=== PATIENT | female | born 1960 | race Caucasian/White ===

== ENCOUNTER 2016-10-05 14:10 | Emergency (ER) | payer MEDICARE, MEDICAID ==
[~2016-10-05] VITALS: Ht 165.1 cm; Wt 61.6 kg
[~2016-10-05 14:10] MED LIST: ALPR0.25 PO; DIVA125T2 PO; DULO20CA45 PO; ESOM20CA PO; GABA100C8 PO; TOPI25CA5 PO
[2016-10-05 14:18] VITALS: BP 124/82
[2016-10-05] MEDS ORDERED: LIDOCAINE 1%, 20ML ONE (14:58)
[2016-10-05] MEDS ORDERED: LIDOCAINE 1%, 20ML SQ ONE (15:00)
[2016-10-05] MEDS ORDERED: DIPH,PERTUSS(ACELL),TET VAC/PF 0.5 ML IM-VACC ONE ×2 (15:00→15:05)
== END 2016-10-05 15:35 | disposition home or self-care (01) ==
LOC: ED 15:01
DX: S51.811A Laceration without foreign body of right forearm, initial encounter (principal); W26.0XXA Contact with knife, initial encounter; Y93.89 Activity, other specified; Y92.89 Other specified places as the place of occurrence of the external cause; Y99.8 Other external cause status
CPT/HCPCS: 12001; 90471; 90715

== ENCOUNTER → 2017-07-30 | Outpatient (CLI) | payer MEDICARE, MEDICAID ==
[~2017-07-30] MED LIST changes: +ALPRazolam 1MG TABLET ONE; +GABA-826 PO; -GABA100C8 PO; +GADOBUTROL 10 MMOL/10 ML VIAL ONE
== END ==
LOC: RAD 14:28
PROVIDERS: ATTEND Family Medicine Adult Medicine
DX: D35.2 Benign neoplasm of pituitary gland (principal)
CPT/HCPCS: 70553; A9585

== ENCOUNTER → 2017-09-01 | Outpatient (CLI) | payer MEDICAID, MEDICARE ==
[~2017-09-01] MED LIST changes: -ALPRazolam 1MG TABLET ONE; +FENTANYL PF 100 MCG/2ML ONE; +MIDAZOLAM 1 MG/ML, 5ML ONE
== END | disposition home or self-care (01) ==
LOC: RAD 07:26
PROVIDERS: ATTEND Family Medicine Adult Medicine
DX: G93.0 Cerebral cysts (principal); D35.2 Benign neoplasm of pituitary gland
CPT/HCPCS: 70553; 99156; 99157; A9585; J2250; J3010

== ENCOUNTER 2019-01-21 08:58 | Emergency (ER) | payer MEDICARE, MEDICAID ==
[~2019-01-21] VITALS: Ht 165.1 cm; Wt 63.4 kg
[2019-01-21 11:48] VITALS: BP 129/75
== END 2019-01-21 12:02 | disposition home or self-care (01) ==
LOC: ED 10:25
DX: K29.00 Acute gastritis without bleeding (principal); Z90.710 Acquired absence of both cervix and uterus
CPT/HCPCS: 36415; 71045; 76700; 80053; 83690; 84484; 85025; 93005; 99284